=== PATIENT | female | born 1945 | race Caucasian/White ===

== ENCOUNTER 2024-06-29 08:08 | Outpatient (CLI) | payer MEDICARE, OTHER, SELFPAY ==
--- NOTE | 2024-06-29 08:13 | CT_ITS ---
WS: [id number] CT HEAD NONCONTRAST HISTORY: VISUAL DISTURBANCE TECHNIQUE: Contiguous axial imaging performed through the brain. Bone and soft tissue windows. Sagittal and coronal reformats reviewed. All CT scans at [facility] use at least one of these dose optimization techniques: automated exposure control; mA and/or kV adjustment per patient size (includes targeted exams where dose is matched to clinical indication); or iterative reconstruction. DLP: 1026.28 mGy.cm COMPARISON: 12/09/2018 No acute intracranial hemorrhage, midline shift or mass effect. Mild symmetric atrophy and minimal small vessel disease. No prior infarct. Mild cerebellar atrophy. Ventricles: Normal size with no hydrocephalus. Paranasal sinuses: Prior sinus surgery. Removal of ethmoid air cells. There are no air-fluid levels within the sinuses. Mastoid air cells: Well pneumatized. Calvarium and scalp: Skull is intact with no soft tissue edema or swelling. Vascular calcification in the intracranial carotid arteries. CT/CT head wo con* [id number] IMPRESSION: 1. No acute intracranial hemorrhage or edema. 2. Mild cerebral and cerebellar atrophy. Minimal small vessel disease. No sign ificant progression since 12/09/2018.
== END 2024-06-29 08:09 | disposition home or self-care (01) ==
PROVIDERS: Family Provider Family Medicine; PCP Family Medicine; Visit Provider Electrodiagnostic Medicine
DX: H53.9 Unspecified visual disturbance (principal); G31.89 Other specified degenerative diseases of nervous system; Z98.890 Other specified postprocedural states; I65.23 Occlusion and stenosis of bilateral carotid arteries
CPT/HCPCS: 70450